=== PATIENT | male | born 1930 | race Caucasian/White ===

== ENCOUNTER → 2017-12-27 | Outpatient (CLI) | payer MEDICARE ==
[~2017-12-27] MED LIST: ASPI-1012 PO; CARV3.12 PO; FURO40TA5 PO; GLIP5TAB11 PO; LISI2.5T2 PO; POTA10TA11 PO
== END | disposition home or self-care (01) ==
LOC: RAH 14:51
PROVIDERS: ATTEND Family Medicine
DX: I50.9 Heart failure, unspecified (principal); J98.11 Atelectasis; J90 Pleural effusion, not elsewhere classified
CPT/HCPCS: 71046